=== PATIENT | male | born 2000 | race Caucasian/White ===

== ENCOUNTER → 2023-03-07 | Outpatient (CLI) | payer OTHER ==
[~2023-03-07] MED LIST: AMOXICILLIN500 MG PO; INTUNIV1 MG PO; MOTRIN400 MG PO; RISPERDAL0.5 MG PO; VYVANSE20 MG PO
== END | disposition home or self-care (01) ==
LOC: RAD 16:37
PROVIDERS: ATTEND Family Medicine
DX: M25.571 Pain in right ankle and joints of right foot (principal)